=== PATIENT | male | born 1965 | race Caucasian/White ===

== ENCOUNTER 2024-12-29 19:23 | Emergency (ER) | payer BC ==
[~2024-12-29] VITALS: Ht 177.8 cm; Wt 81.8 kg
[2024-12-29 19:27] VITALS: BP 140/91; PULSE 73; RESP 16; O2SAT 97
[2024-12-29] MEDS ORDERED: AMOX-580 PO (19:52)
[2024-12-29] MEDS ORDERED: IBUP-1984 PO (19:52)
--- NOTE | 2024-12-29 19:53 | Physician Documentation ---
History of Present Illness General Chief Complaint: Ear Pain Stated Complaint: LEFT EAR PAIN Time Seen by MD: 19:43 History of Present Illness Initial Comments 59-YEAR-OLD MALE WHO PRESENTS TO THE EMERGENCY DEPARTMENT WITH A COMPLAINT OF LEFT OTALGIA. STATES FOR THE LAST COUPLE OF DAYS HE HAS HAD NASAL CONGESTION AND FULLNESS IN THE LEFT EAR. TOOK SOME [id number] MEDICATIONS INCLUDING SOME SUDAFED IN HOPES OF RESOLVING SYMPTOMS. CONCERNED THAT MAYBE HIS TYMPANIC MEMBRANE IS PERFORATED. NO OTHER RECENT ILLNESS OR INJURIES. NO RECENT TRAVELS OR HOSPITALIZATIONS NO REPORTED TRAUMA. Medication Reconciliation Allergies: Coded Allergies: No Known Allergies (Unverified , 12/29/24) Scheduled Amox Tr/Potassium Clavulanate 875/125 MG (Augmentin 875/125 MG), 1 TAB PO BID Ibuprofen* (Motrin*), 800 MG PO Q8H Review of Systems All Other Systems at this time: Reviewed and Negative Constitutional: Denies: fever HENT: Reports: ear pain, nose congestion Physical Exam Physical Exam Vital Signs: RN Vital Signs have been reviewed: Yes, Temperature: 98.4, Heart Rate: 73, Respiratory Rate: 16, BP: 140/91, Pulse Oximetry: 97, Weight: 81.820 Oxygen Flow Rate: 0 General Appearance: alert, WD/WN Head: normal inspection Face: normal inspection Pupils/EOM/Fundus: PERRLA Ear: auricle normal, canal normal, TM red (LEFT WITH EFFUSION) Nose: normal inspection Oropharynx: normal inspection Neck: non-tender Respiratory: no respiratory distress Chest: no accessory muscle use Cardiovascular: regular rate, rhythm Neurologic: oriented x4 Motor / Sensory: no motor deficit, no sensory deficit Psychiatric: normal mood/affect Skin: normal color Progress Results/Orders Results/Orders Completed Orders - AURELIANO GREEN Ibuprofen Tablet (Motrin Tablet) (12/29/24 19:55) Amox Tr/Potassium Clavulanate (Augmentin (12/29/24 19:55) Medications Received in ER Medications (Trade) Dose Ordered Sig/Xiomara Route PRN Reason Start Time Stop Time Status Last Admin Dose Admin (Motrin tablet) 800 mg ONCE ONCE PO 12/29/24 19:55 12/29/24 19:56 DC 12/29/24 20:02 800 MG (Augmentin 875-125mg tablet) 1 tab ONCE ONCE PO 12/29/24 19:55 12/29/24 19:56 DC 12/29/24 20:01 1 TAB Vital Signs 12/29/24 12/29/24 19:27 20:04 Temp 98.4 98.4 Pulse 73 Resp 16 B/P (MAP) 140/91 Pulse Ox 97 O2 Flow Rate 0 Medical Decision Making Differential Diagnosis EXAMINATION HISTORY CONSISTENT WITH LEFT OTITIS MEDIA WITH EFFUSION WITHOUT PERFORATION. FIRST DOSE AUGMENTIN PROVIDED IN THE EMERGENCY DEPARTMENT AND PATIENT WILL BE DISCHARGED WITH AUGMENTIN AND IBUPROFEN WITH RECOMMENDATIONS FOR PRIMARY CARE FOLLOW UP AND/OR RETURN TO THE EMERGENCY DEPARTMENT SYMPTOMS WORSEN. NO CLINICAL SUSPICION FOR MASTOIDITIS, SINUSITIS OR MALIGNANT OTITIS EXTERNA. Departure Disposition: HOME / SELF CARE / HOMELESS Impression: Primary Impression: Left otitis media with effusion Condition: Improved Discharge Instructions: Otitis Media With Effusion, Adult Additional Instructions: Tinel eat while in the emergency department you were provided 1st dose antibiotic for ear infection with the effusion. Please obtain prescription from the pharmacy has scheduled follow up with the primary care physician and to return to the emergency department if symptoms worsen. Thank you for visiting [facility]. Referrals: NO PRIMARY CARE PROVIDER (PCP) Prescriptions Ibuprofen* (Motrin*) 400 Mg Tablet 800 MG PO Q8H for 10 Days, #30 TAB Prov: AURELIANO GREEN PAC 12/29/24 Amox Tr/Potassium Clavulanate 875/125 MG (Augmentin 875/125 MG) 875 Mg-125 Mg Tablet 1 TAB PO BID, #20 TAB Prov: AURELIANO GREEN PAC 12/29/24 Education Educated: Patient Educated regarding: diagnosis, treatment Signature Scribe Signature: . Attestation: . AURELIANO GREEN PAC December 29, 2024 19:53
[2024-12-29] MEDS: amox tr/potassium clavulanate 875/125mg TAB PO ONE (20:01)
[2024-12-29] MEDS: ibuprofen tablet 400 MG TABLET PO ONE (20:02)
[2024-12-29 20:04] VITALS: TEMP 98.4
== END 2024-12-29 20:06 | disposition home or self-care (01) ==
LOC: ER 19:26
DX: H65.92 Unspecified nonsuppurative otitis media, left ear (principal)
CPT/HCPCS: 99283